=== PATIENT | female | born 1940 | race Two or more races ===

== ENCOUNTER 2021-06-14 15:58 | Emergency (ER) | payer MEDICARE, OTHER ==
[~2021-06-14] VITALS: Ht 142.2 cm; Wt 50.9 kg
[2021-06-14 15:58] VITALS: BP 93/62
--- NOTE | 2021-06-14 16:26 | PHYS DOC ---
Past History Past Medical History: Hypertension (JON IVEY DO) Past Surgical History: No Surgical History (JON IVEY DO) Smoking: Non-smoker Alcohol Use: None Drug Use: None (JON IVEY DO) General Adult EDM: Problems: (1) Fatigue (JON IVEY DO) HPI: HPI: 81-year-old female with a history of hypertension presents to the emergency department with fatigue, shortness of breath, muscle aches for the past 1 week that have been worsening today. Therefore to urgent care and were found to have oxygen saturation at 80%. She currently denies any chest pain or any pain anywhere else and states that she feels okay at this time. Her , who helps provide this history is the patient does not speak [place], states that the patient has been fatigued, mentally foggy, but is otherwise been alert and mentally appropriate. She has not been vaccinated for COVID-19. The patient denies nausea, vomiting, fever, chest pain, abdominal pain, urinary symptoms, cough, recent trauma, or any other complaints. (JON IVEY ) Review of Systems: Review of Systems: Constitutional: Admits to chills and fatigue. Eyes: Denies change in vision, pain. HENT: Admits to congestion, denies sore throat. Respiratory: Admits to shortness of breath, denies cough. Cardiovascular: Denies chest pain or edema. GI: Admits to nausea, denies abdominal pain. : Denies change in urination, dysuria. Musculoskeletal: Denies extremity pain, or trauma. Skin: Denies rash, skin change. Neurologic: Denies headache, focal weakness. Psychiatric: Denies depression or anxiety. All other systems reviewed as negative except for what was mentioned in the HPI. (JON IVEY ) Family History: Family History: Noncontributory (JON IVEY ) Current Medications: Current Meds: Current Medications Medications (Trade) Dose Ordered Sig/Niall Route PRN Reason Start Time Stop Time Status Last Admin Dose Admin Dexamethasone Sodium Phosphate (Decadron) 10 mg 1X ONCE IVP 06/14/21 16:30 06/14/21 16:46 DC 06/14/21 16:39 Sodium Chloride 500 ml @ 0 mls/hr 1X ONCE IV 06/14/21 16:45 06/14/21 16:46 DC 06/14/21 16:40 (JON IVEY DO) Allergies: Allergies: Allergies Coded Allergies Type Severity Reaction Last Updated Verified No Known Drug Allergies 06/14/21 No (JON IVEY DO) Physical Exam: PE: Constitutional: No acute distress, non-toxic appearance. HENT: Atraumatic, bilateral external ears normal, nose normal. Eyes: PERRLA, EOMI, conjunctiva normal, no discharge. Neck: Normal range of motion, supple, no stridor. Cardiovascular: Heart rate regular rhythm. 2+ radial pulses Lungs & Thorax: Mild respiratory distress, mild tachypnea is noted, symmetrical expansion. Bilateral breath sounds clear to auscultation Abdomen: Soft, no tenderness Skin: Warm, dry. Extremities: No tenderness, no cyanosis, ROM intact, no edema. Neurologic: Alert and oriented X 3, normal motor function, normal sensory function, no focal deficits noted. Non ataxic gait. GCS 15. Psychologic: Affect normal, judgment normal, mood normal. (JON IVEY DO) Current Patient Data: Labs: Laboratory Tests Test 06/14/21 16:36 White Blood Count 10.0 x10^3/uL (4.0-11.0) Red Blood Count 4.35 x10^6/uL (3.50-5.40) Hemoglobin 13.7 g/dL (12.0-15.5) Hematocrit 39.4 % (36.0-47.0) Mean Corpuscular Volume 91 fL (79-100) Mean Corpuscular Hemoglobin 31 pg (25-35) Mean Corpuscular Hemoglobin Concent 35 g/dL (31-37) Red Cell Distribution Width 12.7 % (11.5-14.5) Platelet Count 234 x10^3/uL (140-400) Neutrophils (%) (Auto) 84 % (31-73) H Lymphocytes (%) (Auto) 10 % (24-48) L Monocytes (%) (Auto) 6 % (0-9) Eosinophils (%) (Auto) 0 % (0-3) Basophils (%) (Auto) 0 % (0-3) Neutrophils # (Auto) 8.4 x10^3uL (1.8-7.7) H Lymphocytes # (Auto) 0.9 x10^3/uL (1.0-4.8) L Monocytes # (Auto) 0.6 x10^3/uL (0.0-1.1) Eosinophils # (Auto) 0.0 x10^3/uL (0.0-0.7) Basophils # (Auto) 0.0 x10^3/uL (0.0-0.2) Sodium Level 131 mmol/L (136-145) L Potassium Level 2.6 mmol/L (3.5-5.1) *L Chloride Level 94 mmol/L (98-107) L Carbon Dioxide Level 27 mmol/L (21-32) Anion Gap 10 (6-14) Blood Urea Nitrogen 16 mg/dL (7-20) Creatinine 0.8 mg/dL (0.6-1.0) Estimated GFR (Cockcroft-Gault) 69.0 BUN/Creatinine Ratio 20 (6-20) Glucose Level 134 mg/dL (70-99) H Calcium Level 7.6 mg/dL (8.5-10.1) L Total Bilirubin 0.6 mg/dL (0.2-1.0) Aspartate Amino Transferase (AST) 118 U/L (15-37) H Alanine Aminotransferase (ALT) 64 U/L (14-59) H Alkaline Phosphatase 93 U/L (46-116) Troponin I Quantitative < 0.017 ng/mL (0-0.055) UK-Obc-K-Type Natriuretic Peptide 208 pg/mL (0-449) Total Protein 6.8 g/dL (6.4-8.2) Albumin 2.8 g/dL (3.4-5.0) L Albumin/Globulin Ratio 0.7 (1.0-1.7) L Vital Signs: Vital Signs Date Time Temp Pulse Resp B/P (MAP) Pulse Ox O2 Delivery O2 Flow Rate FiO2 06/14/21 16:50 97 NonRebreather Mask 15.0 06/14/21 15:58 98.7 83 22 93/62 76 Room Air (JON IVEY DO) EKG: EKG: Normal sinus rhythm, no ST-T wave changes, artifact beats are appreciated, normal axis, normal TN, QRS, and QTc intervals. Impression: Normal EKG. interpreted by me, Jon Ivey D.O. I also discussed the case and EKG with Dr. Chapman who agrees with the EKG interpretation (JON IVEY DO) Radiology/Procedures: Radiology/Procedures: PROCEDURE: PORTABLE CHEST 1V AP chest. HISTORY: Dyspnea AP view was taken of the chest. Heart is upper normal in size. There is no pleural effusion. There are hazy bilateral infiltrates suggesting Covid 19 p neumonia. There is no prior study for comparison. IMPRESSION: 1. Bilateral hazy infiltrates. Electronically signed by: Glen Hadley MD (06/14/2021 5:34 PM) (JON IVEY DO) Impressions: Exam: CT of chest with contrast INDICATION: Covid, rule out PE. Shortness breath TECHNIQUE: Sequential axial images through the chest obtained following the administration of 100 mL of Omni 350 IV contrast. Sagittal and coronal reformatted images were reconstructed from the axial data and reviewed. 3-D reformatted images were reconstructed from the axial data and reviewed. Exposure: One or more of the following in the visualized dose reduction techniques were utilized for this examination: 1. Automated exposure control 2. Adjustment of the MA and/or KV according to patient size 3. Use of iterative of reconstructive technique Comparisons: Chest x-ray same day FINDINGS: Visualized portions of the thyroid are unremarkable. No enlarged mediastinal lymph nodes. Heart size is normal. No pericardial effusion. Thoracic aorta has a normal course and caliber. Pulmonary artery is not enlarged. No pulmonary embolus identified within the main, lobar or segmental pulmonary arteries. Airways are patent. There is extensive patchy ground glass opacity noted lungs bilaterally. No pneumothorax. No suspicious lung nodules identified however evaluation is limited secondary to extensive lung disease. Visualized upper abdomen is unremarkable. No suspicious osseous lesions or acute fractures. IMPRESSION: 1. No pulmonary embolus identified within the main, lobar or segmental pulmonary arteries. 2. Extensive bilateral airspace disease favored to be infectious or inflammatory in etiology. This is consistent with history of Covid. Electronically signed by: Audie Monroy MD (06/14/2021 8:43 PM) [facility] DICTATED AND SIGNED BY: AUDIE MONROY MD DATE: 06/14/212039 CC: AMINATA NAVA DO; ZAYRA LARA DO ~MTH0 0 (AMINATA NAVA DO) Heart Score: C/O Chest Pain: No (JON IVEY DO) Course & Med Decision Making: Course & Med Decision Making Patient was seen immediately upon entering the emergency department, I received report from the physician school office assistant at [facility] who stated that the patient was clinically looking appropriate, but was satting at 78% on room air. Upon entering the exam room the patient was satting at 80% on room air. She was placed on nasal cannula, up to 6 L. She was then advanced to a nonrebreather. Clinically she actually looks quite well, fatigue is the main symptom and she complained of no pain. She is at high risk for severe COVID-19 infection given her age, unvaccinated status, and clinical picture. With the nonrebreather her O2 saturations improved to 93%, and eventually 100%. Will plan to admit to [facility] on nonrebreather. Discussed case with Dr. Blanchard who will accept patient to [facility]. JOSE to Dr. Nava at 1900, pending CTA, labs, PMC transfer. Critical care time was 35 minutes which includes time at bedside, spent in discussion of patient's care with specialists and/or family members, with interpretation of laboratory and/or radiological studies and is exclusive of procedures. (JON IVEY DO) Course & Med Decision Making The patient does not have a pulmonary embolus. CT is consistent with COVID-19. She will be transferred by ambulance. (AMINATA NAVA DO) Departure Departure: Impression: Primary Impression: Respiratory failure with hypoxia Additional Impression: Hypokalemia Condition: GUARDED Referrals: ZAYRA LARA DO (PCP) JON IVEY DO Jun 14, 2021 16:26 AMINATA NAVA DO Jun 15, 2021 05:00
[2021-06-14] MEDS ORDERED: DEXAMETHASONE SOD PHOS 10 MG/ML VIAL. IVP ONE (16:30)
[2021-06-14] MEDS ORDERED: IV NORMAL SALINE 500ML 500 ML IV ONE (16:45)
[2021-06-14] MEDS ORDERED: IOHEXOL 350 MG/ML 100 ML VIAL. IV ONE (17:00)
[2021-06-14 17:11] LABS: BASO % 0 % (0-3); EOS % 0 % (0-3); HEMATOCRIT 39.4 % (36.0-47.0); HEMOGLOBIN 13.7 g/dL (12.0-15.5); LYMPH # 0.9 x10^3/uL (1.0-4.8); LYMPH % 10 % (24-48); MEAN CORPUSCULAR HEMOGLOBIN 31 pg (25-35); MEAN CORPUSCULAR HGB CONC 35 g/dL (31-37); MEAN CORPUSCULAR VOLUME 91 fL (79-100); MONO # 0.6 x10^3/uL (0.0-1.1); MONO % 6 % (0-9); NEUT # 8.4 x10^3uL (1.8-7.7); NEUT % 84 % (31-73); PLATELET COUNT 234 x10^3/uL (140-400); RED BLOOD COUNT 4.35 x10^6/uL (3.50-5.40); RED CELL DISTRIBUTION WIDTH 12.7 % (11.5-14.5)
[2021-06-14 17:29] LABS: ALBUMIN 2.8 g/dL (3.4-5.0); ALBUMIN/GLOBULIN RATIO 0.7 (1.0-1.7); CALCIUM 7.6 mg/dL (8.5-10.1); CREATININE 0.8 mg/dL (0.6-1.0); TOTAL BILIRUBIN 0.6 mg/dL (0.2-1.0); TOTAL PROTEIN 6.8 g/dL (6.4-8.2)
[2021-06-14 17:33] LABS: POTASSIUM 2.6 mmol/L (3.5-5.1)
--- NOTE | 2021-06-14 17:37 | RAD ---
AP chest. HISTORY: Dyspnea AP view was taken of the chest. Heart is upper normal in size. There is no pleural effusion. There ar e hazy bilateral infiltrates suggesting Covid 19 pneumonia. There is no prior study for comparison. IMPRESSION: 1. Bilateral hazy infiltrates. Electronically signed by: Glen Hadley MD (06/14/2021 5:34 PM) [facility]
[2021-06-14] MEDS ORDERED: POTASSIUM CHLORIDE 20 MEQ TABLET.ER. PO ONE (17:45)
[2021-06-14] MEDS ORDERED: POTASSIUM CL 20MEQ IN 0.9%NACL 1,000 ML IV ONE (17:45)
[2021-06-14 18:33] LABS: BGAS PH 7.49 (7.35-7.45)
[2021-06-14 20:39] LABS: BILIRUBIN,URINE NEG (NEG); CLARITY,URINE HAZY; COLOR,URINE YELLOW; GLUCOSE,URINE NEG (NEG); NITRITE,URINE NEG (NEG); UROBILINOGEN,URINE 0.2 mg/dL (0.2 mg/dL)
[2021-06-14 20:40] LABS: BACTERIA,URINE FEW /HPF (0-FEW); SQUAMOUS EPITHELIAL CELL,UR FEW /LPF
--- NOTE | 2021-06-14 20:46 | RAD ---
Exam: CT of chest with contrast INDICATION: Covid, rule out PE. Shortness breath TECHNIQUE: Sequential axial images through the chest obtained following the administration of 100 mL of Omni 350 IV contrast. Sagittal and coronal reformatted images were reconstructed from the axial da ta and reviewed. 3-D reformatted images were reconstructed from the axial data and reviewed. Exposure: One or more of the following in the visualized dose reduction techniques were utilized for this examination: 1. Automated exposure control 2. Adjustment of the MA and/or KV according to patient size 3. Use of iterative of reconstructive technique Comparisons: Chest x-ray same day FINDINGS: Visualized portions of the thyroid are unremarkable. No enlarged mediastinal lymph nodes. Heart size is normal. No pericardial effusion. Thoracic aorta has a normal course and caliber. Pulmon madi artery is not enlarged. No pulmonary embolus identified within the main, lobar or segmental pulmo nary arteries. Airways are patent. There is extensive patchy ground glass opacity noted lungs bilaterally. No pneumo thorax. No suspicious lung nodules identified however evaluation is limited secondary to extensive luis ng disease. Visualized upper abdomen is unremarkable. No suspicious osseous lesions or acute fractures. IMPRESSION: 1. No pulmonary embolus identified within the main, lobar or segmental pulmonary arteries. 2. Extensive bilateral airspace disease favored to be infectious or inflammatory in etiology. This i s consistent with history of Covid. Electronically signed by: Audie Hedrick MD (06/14/2021 8:43 PM) [facility]
--- NOTE | 2021-06-14 21:26 | EKG ---
[address] [address] Test Date: 2021-06-14 Test Time: 16:43:16 Pat Name: DENNIS LEVIN Department: Room: Gender: F Plug Paster: : [id number] Requested By: TAYLOR ESQUIVEL Order Number: [id number] Reading MD: Measurements Intervals [place] Rate: 74 P: 26 LA: 162 QRS: 35 QRSD: 118 T: 19 QT: 420 QTc: 472 Interpretive Statements SINUS RHYTHM LEFT ATRIAL ABNORMALITY QRS(T) CONTOUR ABNORMALITY CONSIDER INFERIOR MYOCARDIAL DAMAGE ABNORMAL ECG RI6.02 No previous ECG available for comparison
== END 2021-06-14 21:55 | disposition short-term general hospital (02) ==
LOC: ER 15:58
DX: J96.91 Respiratory failure, unspecified with hypoxia (principal); E87.6 Hypokalemia; I10 Essential (primary) hypertension; Z20.822 Contact with and (suspected) exposure to COVID-19
CPT/HCPCS: 36415; 36600; 71045; 71275; 80053; 81001; 82803; 83880; 84484; 85025; 93005; 96361; 96374; 99285; C9803; J1100; J7040; U0003